=== PATIENT | male | born 2000 | race Caucasian/White ===

== ENCOUNTER 2022-05-02 18:53 | Emergency (ER) | payer BC ==
[~2022-05-02] VITALS: Ht 180.3 cm; Wt 73.9 kg
--- NOTE | 2022-05-02 19:30 | NUR ---
Patient is a/ox4, NAD noted. Patient is able to walk with steady gait
--- NOTE | 2022-05-02 19:36 | NUR ---
Dr Richards in room. MSE in progress
[2022-05-02 20:02] LABS: HEMATOCRIT 46.6 % (36.7-47.1); MEAN CORPUSCULAR HEMOGLOBIN 29.9 uug (23.8-33.4); MEAN CORPUSCULAR VOLUME 88.1 fL (73.0-96.2); PLATELET COUNT (AUTO) 210 K/uL (152-348)
[2022-05-02 20:09] LABS: CREATININE 0.9 mg/dL (0.6-1.3); POTASSIUM 3.8 mmol/L (3.5-5.1)
--- NOTE | 2022-05-02 20:10 | NUR ---
Patient insisted to wait in the waiting room
[2022-05-02 20:21] LABS: BILIRUBIN,DIRECT 0.2 mg/dL (0.0-0.2); BILIRUBIN,TOTAL 1.1 mg/dL (0.2-1.0); TOTAL PROTEIN, SERUM 7.3 g/dL (6.4-8.2)
[2022-05-02 20:31] LABS: *BILIRUBIN,URIN NEGATIVE (NEGATIVE); *BLOOD, URINE NEGATIVE (NEGATIVE); *CLARITY,URINE CLOUDY (CLEAR); *COLOR,URINE YELLOW (YELLOW); *KETONES,URINE NEGATIVE (NEGATIVE); *UROBILINOGEN,URINE 0.2 E.U./dl (NORMAL); LEUKOCYTE ESTERASE ,URINE NEGATIVE (NEGATIVE); NITRITE, URINE NEGATIVE (NEGATIVE); PH,URINE 8.5 (5.0-8.0); UGLUCOSE NEGATIVE (NEGATIVE)
[2022-05-02 20:55] LABS: BACTERIA,URINE NONE SEEN /HPF (NONE SEEN); RBC,URINE 0-3 /HPF (0-3); SQUAMOUS EPITHELIAL CELL,UR NONE SEEN /HPF (NONE SEEN); WBC,URINE 0-3 /HPF (0-3)
[2022-05-02 20:56] LABS: URINE AMORPHOUS PHOSPHATES MANY /HPF
[2022-05-02] MEDS ORDERED: ACET-73 PO (21:16)
[2022-05-02] MEDS ORDERED: POLY17PO4 PO (21:16)
--- NOTE | 2022-05-02 21:22 | NUR ---
Patient discharged to home in stable condition. Written and verbal after care instructions given. Patient verbalizes understanding of instructions. Stressed follow up or return to ER for worsening s/s. Patient is a/ox4, NAD noted, able to walk steady gait.
[2022-05-02 21:23] VITALS: BP 123/76
== END 2022-05-02 21:24 | disposition home or self-care (01) ==
LOC: ER 18:56 → EDSEX 18:56 → ER 21:24
DX: R10.9 Unspecified abdominal pain (principal); Z88.0 Allergy status to penicillin; Z91.013 Allergy to seafood
CPT/HCPCS: 36415; 83690; 85025; A4663